=== PATIENT | female | born 1970 | race Caucasian/White ===

== ENCOUNTER 2019-07-19 20:30 | Emergency (ER) | payer OTHER ==
[~2019-07-19] VITALS: Ht 170.2 cm; Wt 68.0 kg
[~2019-07-19 20:30] MED LIST: ACYC400; ATOR10; CLEM1.34; CLON.1; CLON.5; FLUC150A; FLUO10; GABA100; HYDACE5; HYDACE5 PO; HYDACE7.5 PO; INSLI100I; INSULANI; METO100ER; MULVITB; MYCO250; PRED5; RXHYDACE PO; SEVE800; TACR1; VALA500 PO
[2019-07-19] MEDS ORDERED: Klonopin1 MG PO (21:04)
== END 2019-07-19 21:36 | disposition home or self-care (01) ==
LOC: ER 20:30
DX: F41.9 Anxiety disorder, unspecified (principal); Z76.0 Encounter for issue of repeat prescription; E11.9 Type 2 diabetes mellitus without complications; I10 Essential (primary) hypertension; Z88.0 Allergy status to penicillin; Z79.899 Other long term (current) drug therapy
CPT/HCPCS: 82947; 99281; Q0163

== ENCOUNTER → 2020-04-07 | Outpatient (CLI) | payer OTHER ==
[~2020-04-07] MED LIST changes: +CLON1 PO; +Enulose10 GM/15 M PO; +Klonopin1 MG PO; +Myfortic360 MG PO; +OMEP20ER PO; +PROGRAF1 M1 PO; +PSEUDOEPHEDRINE30 MG PO
[2020-04-08 22:14] LABS: Candida species (DNA Probe) Negative (NEGATIVE); G. vaginalis (DNA Probe) Positive (NEGATIVE); T. vaginalis (DNA Probe) Negative (NEGATIVE)
== END ==
LOC: LAB SHORT 16:22 → LAB 16:22 → LAB SHORT 04-08 16:22
PROVIDERS: Nurse Practitioner Family
DX: N90.89 Other specified noninflammatory disorders of vulva and perineum (principal); R30.0 Dysuria
CPT/HCPCS: 87077; 87086; 87186; 87480; 87510; 87529; 87660

== ENCOUNTER → 2020-04-21 | Outpatient (CLI) | payer OTHER | END | disposition home or self-care (01) | LOC: LAB 16:15 → LAB SHORT 16:15 | DX: N89.8 Other specified noninflammatory disorders of vagina (principal); R10.2 Pelvic and perineal pain; R30.0 Dysuria | CPT/HCPCS: 87086; 87529; 87798 ==

== ENCOUNTER 2020-05-17 10:41 | Emergency (ER) | payer OTHER ==
[~2020-05-17] VITALS: Ht 167.6 cm; Wt 63.5 kg
== END 2020-05-17 11:40 | disposition home or self-care (01) ==
LOC: ER 10:41
DX: T19.2XXA Foreign body in vulva and vagina, initial encounter (principal); E11.9 Type 2 diabetes mellitus without complications; F41.9 Anxiety disorder, unspecified; I10 Essential (primary) hypertension; Z79.899 Other long term (current) drug therapy; Z87.42 Personal history of other diseases of the female genital tract; Z88.0 Allergy status to penicillin; Z88.6 Allergy status to analgesic agent; Z88.5 Allergy status to narcotic agent
CPT/HCPCS: 99283

== ENCOUNTER 2020-07-02 09:56 | Day surgery (SDC) | payer OTHER ==
[~2020-07-02] VITALS: Ht 167.6 cm; Wt 67.1 kg
[2020-07-02] MEDS ORDERED: BISA5EC PO (10:24)
--- NOTE | 2020-07-02 10:27 | NUR ---
07/02/20 Michelle7 Donna Baires CALL LIGHT WITHIN REACH
== END 2020-07-02 12:35 | disposition home or self-care (01) ==
LOC: ORSCSDS 09:56
DX: D50.9 Iron deficiency anemia, unspecified (principal); K29.50 Unspecified chronic gastritis without bleeding; B37.81 Candidal esophagitis; K63.89 Other specified diseases of intestine; K64.4 Residual hemorrhoidal skin tags; K64.8 Other hemorrhoids; K59.00 Constipation, unspecified; Z86.010 Personal history of colon polyps; I10 Essential (primary) hypertension; Z94.83 Pancreas transplant status; Z94.0 Kidney transplant status; E78.00 Pure hypercholesterolemia, unspecified; F41.9 Anxiety disorder, unspecified; Z79.899 Other long term (current) drug therapy
CPT/HCPCS: 82947; 88305; 88342; J2704; J7120

== ENCOUNTER 2020-10-08 19:46 | Emergency (ER) | payer OTHER ==
[~2020-10-08] VITALS: Ht 167.6 cm; Wt 63.5 kg
[~2020-10-08 19:46] MED LIST changes: +BISA5EC PO
[2020-10-08] MEDS ORDERED: MYCOPHENOLIC A PO (22:38)
[2020-12-31] MEDS ORDERED: FISH OIL 1,2001 EAC1 PO (09:21)
[2020-12-31] MEDS ORDERED: TUMS500 MG PO (09:21)
[2020-12-31] MEDS ORDERED: CLON1 PO (09:21)
[2020-12-31] MEDS ORDERED: Flonase 0.05% N16 GM (09:22)
[2020-12-31] MEDS ORDERED: Enulose10 GM/15 M PO (09:22)
[2020-12-31] MEDS ORDERED: PSEUDOEPHEDRINE30 M1 PO (09:23)
[2020-12-31] MEDS ORDERED: OMEPRAZOLE MAGN20 MG PO (09:23)
[2020-12-31] MEDS ORDERED: MULTIPLE VITAM1 EACH PO (09:23)
[2020-12-31] MEDS ORDERED: MYCOPHENOLIC A PO (09:23)
[2020-12-31] MEDS ORDERED: VALA500 PO (09:24)
[2020-12-31] MEDS ORDERED: SENN187 PO (09:24)
[2020-12-31] MEDS ORDERED: TACR1 PO (09:24)
== END 2020-10-08 23:10 | disposition home or self-care (01) ==
LOC: ER 19:46
DX: L98.9 Disorder of the skin and subcutaneous tissue, unspecified (principal); E11.9 Type 2 diabetes mellitus without complications; I10 Essential (primary) hypertension; Z88.0 Allergy status to penicillin; Z88.6 Allergy status to analgesic agent; Z88.5 Allergy status to narcotic agent; Z79.899 Other long term (current) drug therapy
CPT/HCPCS: 99282

== ENCOUNTER 2020-10-09 05:31 | Emergency (ER) | payer OTHER ==
[~2020-10-09] VITALS: Ht 167.6 cm; Wt 63.5 kg
[~2020-10-09 05:31] MED LIST changes: +MYCOPHENOLIC A PO
[2020-12-31] MEDS ORDERED: TUMS500 MG PO (09:21)
[2020-12-31] MEDS ORDERED: FISH OIL 1,2001 EAC1 PO (09:21)
[2020-12-31] MEDS ORDERED: CLON1 PO (09:21)
[2020-12-31] MEDS ORDERED: Flonase 0.05% N16 GM (09:22)
[2020-12-31] MEDS ORDERED: Enulose10 GM/15 M PO (09:22)
[2020-12-31] MEDS ORDERED: MYCOPHENOLIC A PO (09:23)
[2020-12-31] MEDS ORDERED: MULTIPLE VITAM1 EACH PO (09:23)
[2020-12-31] MEDS ORDERED: PSEUDOEPHEDRINE30 M1 PO (09:23)
[2020-12-31] MEDS ORDERED: OMEPRAZOLE MAGN20 MG PO (09:23)
[2020-12-31] MEDS ORDERED: VALA500 PO (09:24)
[2020-12-31] MEDS ORDERED: TACR1 PO (09:24)
[2020-12-31] MEDS ORDERED: SENN187 PO (09:24)
== END 2020-10-09 05:45 | disposition home or self-care (01) ==
LOC: ER 05:31
DX: L29.9 Pruritus, unspecified (principal); Z88.0 Allergy status to penicillin; Z88.6 Allergy status to analgesic agent; Z88.5 Allergy status to narcotic agent; Z79.899 Other long term (current) drug therapy
CPT/HCPCS: 99282

== ENCOUNTER → 2020-10-15 | Outpatient (CLI) | payer OTHER ==
[~2020-10-15] MED LIST changes: +DIPHENHYDRAMINE50 M1 PO; +FISH OIL 1,2001 EAC1 PO; +Flonase 0.05% N16 GM; +HYDPAM25 PO; +MULTIPLE VITAM1 EACH PO; +OMEPRAZOLE MAGN20 MG PO; +PINAWAY50 MG/1 ML PO; +PSEUDOEPHEDRINE30 M1 PO; +SENN187 PO; +TACR1 PO; +TUMS500 MG PO
== END | disposition home or self-care (01) ==
LOC: LAB EV 08:20 → LAB SHORT 08:20
DX: R19.5 Other fecal abnormalities (principal)
CPT/HCPCS: 87015; 87045; 87046; 87177; 87205; 87209; 87899

== ENCOUNTER 2020-10-18 19:42 | Emergency (ER) | payer OTHER ==
[~2020-10-18] VITALS: Ht 170.2 cm; Wt 63.5 kg
[~2020-10-18 19:42] MED LIST changes: -DIPHENHYDRAMINE50 M1 PO; -FISH OIL 1,2001 EAC1 PO; -Flonase 0.05% N16 GM; -HYDPAM25 PO; -MULTIPLE VITAM1 EACH PO; -OMEPRAZOLE MAGN20 MG PO; -PINAWAY50 MG/1 ML PO; -PSEUDOEPHEDRINE30 M1 PO; -SENN187 PO; -TACR1 PO; -TUMS500 MG PO
[2020-10-18 20:13] LABS: BASOPHILS ABSOLUTE AUTO 0.06 K/mm3 (0.00-0.23); BASOPHILS PERCENT AUTO 1 % (0-2); EOSINOPHILS PERCENT AUTO 5 % (0-6); Hemoglobin 9.2 g/dL (11.5-16.0); IMMATURE GRAN ABSOLUTE AUTO 0.01 K/mm3 (0.00-0.10); IMMATURE GRAN PERCENT AUTO 0 % (0-1); LYMPHOCYTES ABSOLUTE AUTO 2.14 K/mm3 (0.84-5.20); LYMPHOCYTES PERCENT AUTO 33 % (21-46); MONOCYTES ABSOLUTE AUTO 0.56 K/mm3 (0.16-1.47); MONOCYTES PERCENT AUTO 9 % (4-13); Mean Corpuscular HGB 24.4 pg (26.0-34.0); Mean Corpuscular HGB Conc 30.7 g/dL (31.5-36.5); Mean Corpuscular Volume 80 fL (80-100); NEUTROPHILS ABSOLUTE AUTO 3.37 K/mm3 (1.96-9.15); NEUTROPHILS PERCENT AUTO 52 % (41-73); Platelet Count 254 K/mm3 (150-400); RDW Coefficient Variation 17.1 % (11.7-14.2); RDW Standard Deviation 49.1 fL (35.1-46.3); Red Blood Cell Count 3.77 M/mm3 (3.80-5.20); White Blood Cell Count 6.44 K/mm3 (4.00-11.30)
[2020-10-18] MEDS ORDERED: HYDPAM25 PO (20:26)
[2020-10-18] MEDS ORDERED: DIPHENHYDRAMINE50 M1 PO (20:26)
[2020-10-18 20:31] LABS: Alanine Aminotransfer (ALT/SGP 19 U/L (12-78); Albumin/Globulin Ratio 1.1 (0.8-1.8); Alk Phos 42 U/L (50-136); Anion Gap 5 mmol/L (6-16); Aspartate Aminotrans (AST/SGOT 20 U/L (12-37); Bilirubin, Total 0.2 mg/dL (0.1-1.0); Blood Urea Nitrogen 16 mg/dL (8-24); Bun/Creatinine Ratio 15.8 (12.0-20.0); CO2, Blood 25 mmol/L (21-32); Calcium, Blood 9.5 mg/dL (8.5-10.1); Chloride, Blood 109 mmol/L (98-108); Creatinine, Blood 1.01 mg/dL (0.40-1.00); Globulin, Blood 3.7 g/dL (2.2-4.0); Glomerular Filtration Rate >60 (60-); Glucose, Blood 120 mg/dL (70-99); Potassium, Blood 3.9 mmol/L (3.5-5.5); Sodium, Blood 139 mmol/L (136-145); Total Protein, Blood 7.7 g/dL (6.4-8.2)
[2020-10-18] MEDS ORDERED: PINAWAY50 MG/1 ML PO (20:31)
[2020-10-18 20:45] LABS: Source, Urine Clean Catch
[2020-10-18 20:50] LABS: Bilirubin, Urine Neg (Neg); Blood, Urine Neg (Neg); Glucose Qualitative, Urine Neg (Neg); Ketones, Urine 1+ (Neg); Leukocyte Esterase, Urine 1+ (Neg); Nitrite, Urine Neg (Neg); Protein, Urine 1+ (Neg); Specific Gravity, Urine 1.025 (1.003-1.022); Urobilinogen, Urine NORM (Normal)
[2020-10-18 20:58] LABS: Appearance, Urine Hazy (Clear); Color, Urine Yellow (P-Yellow)
[2020-10-18 20:59] LABS: Bacteria Many /hpf; Red Blood Cells, Urine Not Seen /hpf (0-2); Squamous Epithelial Cells Many /hpf (Few)
[2020-12-31] MEDS ORDERED: FISH OIL 1,2001 EAC1 PO (09:21)
[2020-12-31] MEDS ORDERED: TUMS500 MG PO (09:21)
[2020-12-31] MEDS ORDERED: CLON1 PO (09:21)
[2020-12-31] MEDS ORDERED: Enulose10 GM/15 M PO (09:22)
[2020-12-31] MEDS ORDERED: Flonase 0.05% N16 GM (09:22)
[2020-12-31] MEDS ORDERED: PSEUDOEPHEDRINE30 M1 PO (09:23)
[2020-12-31] MEDS ORDERED: MYCOPHENOLIC A PO (09:23)
[2020-12-31] MEDS ORDERED: OMEPRAZOLE MAGN20 MG PO (09:23)
[2020-12-31] MEDS ORDERED: MULTIPLE VITAM1 EACH PO (09:23)
[2020-12-31] MEDS ORDERED: TACR1 PO (09:24)
[2020-12-31] MEDS ORDERED: SENN187 PO (09:24)
[2020-12-31] MEDS ORDERED: VALA500 PO (09:24)
== END 2020-10-18 21:20 | disposition home or self-care (01) ==
LOC: ER 19:42
PROVIDERS: Emergency Medicine
DX: F22 Delusional disorders (principal)
CPT/HCPCS: 80053; 81001; 83690; 85025; 87077; 87086; 87186; 99283

== ENCOUNTER → 2020-10-24 | Outpatient (CLI) | payer OTHER ==
[~2020-10-24] MED LIST changes: +DIPHENHYDRAMINE50 M1 PO; +FISH OIL 1,2001 EAC1 PO; +Flonase 0.05% N16 GM; +HYDPAM25 PO; +MULTIPLE VITAM1 EACH PO; +OMEPRAZOLE MAGN20 MG PO; +PINAWAY50 MG/1 ML PO; +PSEUDOEPHEDRINE30 M1 PO; +SENN187 PO; +TACR1 PO; +TUMS500 MG PO
== END | disposition home or self-care (01) ==
LOC: LAB SHORT 16:44 → LAB EV 16:44
DX: R53.83 Other fatigue (principal); R20.2 Paresthesia of skin; R19.5 Other fecal abnormalities
CPT/HCPCS: 82607; 82746; 84443; 87177; 87209

== ENCOUNTER → 2021-01-28 | Outpatient (CLI) | payer OTHER | LOC: LAB SHORT 17:30 | DX: N39.0 Urinary tract infection, site not specified (principal) | CPT/HCPCS: 87077; 87086; 87186 ==